=== PATIENT | female | born 1995 | race African-American/Black ===

== ENCOUNTER 2020-11-23 15:25 | Emergency (ER) | payer MEDICAID ==
[~2020-11-23] VITALS: Ht 172.7 cm; Wt 65.0 kg
[2020-11-23] MEDS ORDERED: BACITRACIN ZINC OINT UDPKT TOP ONE (18:30)
[2020-11-23] MEDS ORDERED: LIDOCAINE HCL/EPINEPHRINE 1%-EPI 1:100,000 10 ML VIAL IJ ONE (18:30)
[2020-11-23] MEDS ORDERED: DOXY100C2 MT (18:38)
[2020-11-23] MEDS ORDERED: CEPH500T MT (18:38)
[2020-11-23] MEDS ORDERED: T3 PO (18:38)
[2020-11-23] MEDS ORDERED: FLUC150T5 MT (18:45)
[2020-11-23] MEDS ORDERED: LIDOCAINE HCL/EPINEPHRINE 1%-EPI 1:100,000 20 ML VIAL INFIL NR (18:45)
[2020-11-23 20:20] VITALS: BP 115/72
== END 2020-11-23 20:28 | disposition home or self-care (01) ==
LOC: ER 15:25
DX: L73.2 Hidradenitis suppurativa (principal); L03.115 Cellulitis of right lower limb; Z79.899 Other long term (current) drug therapy
CPT/HCPCS: 99283; J3490; Z7610

== ENCOUNTER 2021-03-08 09:57 | Emergency (ER) | payer MEDICAID ==
[~2021-03-08] VITALS: Ht 160 cm; Wt 86.0 kg
[~2021-03-08 09:57] MED LIST: CEPH500T MT; DOXY100C2 MT; FLUC150T5 MT; T3 PO
[2021-03-08 10:05] VITALS: BP 113/82
[2021-03-08] MEDS ORDERED: KETOROLAC 60MG/2ML VIAL IM ONE (11:15)
[2021-03-08 12:49] LABS: CLARITY URINE CLOUDY (CLEAR); COLOR URINE DARK YELLOW (YELLOW); KETONES URINE TRACE (NEGATIVE); LEUKOCYTE ESTERASE URINE NEGATIVE (NEGATIVE); NITRITE URINE NEGATIVE (NEGATIVE); OCCULT BLOOD URINE 2+ (NEGATIVE); PROTEIN URINE 1+ (NEGATIVE); SPECIFIC GRAVITY URINE 1.035 (1.005-1.030)
== END 2021-03-08 12:01 | disposition left against medical advice (07) ==
LOC: ER 09:57
DX: R10.32 Left lower quadrant pain (principal); Z79.899 Other long term (current) drug therapy
CPT/HCPCS: 81003; 81025; 99283; J1885

== ENCOUNTER 2021-03-27 09:38 | Emergency (ER) | payer MEDICAID ==
[~2021-03-27] VITALS: Ht 162.6 cm; Wt 90.0 kg
[2021-03-27 09:42] VITALS: BP 118/75
[2021-03-27] MEDS ORDERED: ACETAMINOPHEN 325MG TABLET PO ONE (10:30)
[2021-03-27] MEDS ORDERED: TOPUD MT (10:42)
== END 2021-03-27 11:03 | disposition home or self-care (01) ==
LOC: ER 09:38
DX: M79.644 Pain in right finger(s) (principal)
CPT/HCPCS: 11730; 29130; 99283; A4217; Z7610

== ENCOUNTER 2021-08-01 17:27 | Emergency (ER) | payer MEDICAID ==
[~2021-08-01] VITALS: Ht 160 cm; Wt 86.0 kg
[~2021-08-01 17:27] MED LIST changes: -DOXY100C2 MT; +DOXY100C5 MT; +TOPUD MT
[2021-08-01] MEDS ORDERED: KETOROLAC 60MG/2ML VIAL IM ONE (17:45)
[2021-08-01 19:11] VITALS: BP 106/85
== END 2021-08-01 19:13 | disposition home or self-care (01) ==
LOC: ER 17:27
DX: S09.8XXA Other specified injuries of head, initial encounter (principal); W22.01XA Walked into wall, initial encounter; Y93.89 Activity, other specified; Y92.89 Other specified places as the place of occurrence of the external cause; Y99.8 Other external cause status
CPT/HCPCS: 99281

== ENCOUNTER 2021-08-08 13:13 | Emergency (ER) | payer MEDICAID ==
[~2021-08-08] VITALS: Ht 160 cm; Wt 86.0 kg
[2021-08-08 13:17] VITALS: BP 121/85
[2021-08-08] MEDS ORDERED: CAFFEINE 200MG TABLET PO ONE (14:30)
[2021-08-08 15:41] LABS: CLARITY URINE CLEAR (CLEAR); COLOR URINE YELLOW (YELLOW); KETONES URINE TRACE (NEGATIVE); LEUKOCYTE ESTERASE URINE NEGATIVE (NEGATIVE); NITRITE URINE NEGATIVE (NEGATIVE); OCCULT BLOOD URINE NEGATIVE (NEGATIVE); PH URINE 5.5 (4.5-8.0); PROTEIN URINE NEGATIVE (NEGATIVE); SPECIFIC GRAVITY URINE 1.026 (1.005-1.030); UROBILINOGEN URINE 0.2 E.U./dL (0.2-1.0)
== END 2021-08-08 15:35 | disposition left against medical advice (07) ==
LOC: ER 13:13
DX: R51.9 Headache, unspecified (principal); M54.50 Low back pain, unspecified; W22.01XA Walked into wall, initial encounter; Y93.89 Activity, other specified; Y92.89 Other specified places as the place of occurrence of the external cause; Y99.8 Other external cause status
CPT/HCPCS: 81003; 81025; 99284